=== PATIENT | male | born 1990 | race Caucasian/White ===

== ENCOUNTER 2017-02-09 19:10 | Inpatient (IN) | payer MEDICAID, OTHER ==
[2017-02-09] MEDS ORDERED: IBUPROFEN 600 MG TAB PO ONE ×2 (20:05→20:14)
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
[2017-02-09] MEDS ORDERED: NS 1,000 ML IV ONE (21:00)
[2017-02-09] MEDS ORDERED: HYDROmorphONE/DILAUDID 1 MG/ML SYR IVP ONE ×2 (21:00→21:49)
[2017-02-09] MEDS ORDERED: ONDANSETRON 4 MG/2 ML VIAL ONE (21:10)
[2017-02-09] MEDS ORDERED: HYDROCODONE/APAP 5/325 TAB PO PRN (21:16)
[2017-02-09 21:17] LABS: % IMMATURE GRANULYOCYTES 0.7 % (0.0-1.1); ABSOLUTE IMMATURE GRANULOCYTES 0.11 10^3/uL (0.00-0.10); ADD DIFF? NO; ADD MORPH? NO; ADD SCAN? NO; ATYPICAL LYMPHOCYTE FLAG 0 (0-99); FRAGMENT RBC FLAG 0 (0-99); HEMATOCRIT 43.3 % (40.0-51.0); HEMOGLOBIN 15.1 g/dL (13.7-17.5); LEFT SHIFT FLG 0 (0-99); LIPEMIA HEMOLYSIS FLAG 90 (0-99); MEAN CELL HEMOGLOBIN 30.8 pg (27.9-34.1); MEAN CELL HEMOGLOBIN CONCENTR. 34.9 g/dL (32.4-36.7); MEAN CELL VOLUME 88.4 fL (81.5-99.8); MEAN PLATELET VOLUME 11.3 fL (8.7-11.7); PLATELET CLUMPS FLAG 0 (0-99); PLATELET COUNT 152 10^3/uL (150-400); RED CELL DISTRIBUTION WIDTH 12.7 % (11.5-15.2)
[2017-02-09 21:29] LABS: APTT 27.5 SEC (23.0-38.0); INR 1.16 (0.83-1.16); PROTIME(PATIENT) 14.8 SEC (12.0-15.0)
[2017-02-09 21:36] LABS: ANION GAP 9 mEq/L (8-16); CALCIUM 9.9 mg/dL (8.5-10.4); CARBON DIOXIDE 24 mEq/l (22-31); CHLORIDE 104 mEq/L (97-110); CREATININE 0.9 mg/dL (0.7-1.3); ETHANOL SERUM < 10 mg/dL (0-10); GLOMERULAR FILTRATION RATE > 60; GLUCOSE 102 mg/dL (70-100); POTASSIUM 3.7 mEq/L (3.5-5.2); SODIUM 137 mEq/L (134-144)
[2017-02-09] MEDS ORDERED: NS 1,000 ML IV SCH (23:15)
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
[2017-02-10] MEDS: BACITRACIN ZINC 14.2 GM OINTTUBE TP SCH ×3 (00:40→21:04)
[2017-02-10] MEDS: ONDANSETRON 4 MG/2 ML VIAL IVP PRN ×2 (05:41→21:01)
[2017-02-10] MEDS: ACETAMINOPHEN 500 MG TAB PO SCH ×3 (05:41→20:51)
[2017-02-10 05:53] LABS: % IMMATURE GRANULYOCYTES 0.4 % (0.0-1.1); ABSOLUTE IMMATURE GRANULOCYTES 0.04 10^3/uL (0.00-0.10); ADD DIFF? NO; ADD MORPH? NO; ADD SCAN? NO; ATYPICAL LYMPHOCYTE FLAG 10 (0-99); FRAGMENT RBC FLAG 0 (0-99); HEMATOCRIT 39.8 % (40.0-51.0); HEMOGLOBIN 13.9 g/dL (13.7-17.5); LEFT SHIFT FLG 0 (0-99); LIPEMIA HEMOLYSIS FLAG 90 (0-99); MEAN CELL HEMOGLOBIN CONCENTR. 34.9 g/dL (32.4-36.7); MEAN CELL VOLUME 88.6 fL (81.5-99.8); MEAN PLATELET VOLUME 11.7 fL (8.7-11.7); PLATELET CLUMPS FLAG 20 (0-99); PLATELET COUNT 130 10^3/uL (150-400); RED BLOOD CELL COUNT 4.49 10^6/uL (4.40-6.38); RED CELL DISTRIBUTION WIDTH 12.8 % (11.5-15.2)
[2017-02-10 06:16] LABS: ANION GAP 9 mEq/L (8-16); CALCIUM 9.1 mg/dL (8.5-10.4); CARBON DIOXIDE 24 mEq/l (22-31); CHLORIDE 106 mEq/L (97-110); CREATININE 0.8 mg/dL (0.7-1.3); GLOMERULAR FILTRATION RATE > 60; GLUCOSE 101 mg/dL (70-100); POTASSIUM 4.2 mEq/L (3.5-5.2); SODIUM 139 mEq/L (134-144)
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
[2017-02-11] MEDS: ACETAMINOPHEN 500 MG TAB PO SCH (05:41)
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
[2017-02-11 08:26] VITALS: BP 124/79; PULSE 64; RESP 15; TEMP 98.3; O2SAT 94
[2017-02-11] MEDS: BACITRACIN ZINC 14.2 GM OINTTUBE TP SCH (08:47)
[2017-02-11] MEDS ORDERED: ONDANSETRON DISINTEGRATING 4 MG TAB PO PRN (10:25)
[2017-02-11] MEDS ORDERED: HYDROCODONE/APAP 5/325 TAB PO PRN (10:37)
== END 2017-02-11 12:20 | disposition home or self-care (01) | DRG 87 ==
LOC: F2N 23:45 → OBSVTOIN 02-10 16:00 → F3N 02-10 19:42
PROVIDERS: ADMIT Surgery; ATTEND Surgery
DX: S06.4X0A Epidural hemorrhage without loss of consciousness, initial encounter (principal); S02.0XXA Fracture of vault of skull, initial encounter for closed fracture; S30.810A Abrasion of lower back and pelvis, initial encounter; S80.211A Abrasion, right knee, initial encounter; R40.2412 Glasgow coma scale score 13-15, at arrival to emergency department; V00.131A Fall from skateboard, initial encounter; Y92.414 Local residential or business street as the place of occurrence of the external cause; Y99.8 Other external cause status
CPT/HCPCS: 92523-GN; 96374; 97161-GP; 97165-GO; 97535-GO; G0378; G0480; J1170; J2405

== ENCOUNTER 2017-12-21 14:15 | Emergency (ER) | payer SELFPAY ==
[2017-12-21 14:25] VITALS: BP 152/86
[2017-12-21] MEDS ORDERED: TDAP ADULT 0.5 ML INJ (BOOSTRIX) IM ONE (14:36)
--- NOTE | 2017-12-21 14:37 | EDPHY ---
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 No fractured object. No foreign body sensation. No glass or ceramic involvement.. No paresthesia. Remains tender. No flexor or extensor deficits. No lymphangitic streaking. PHYSICAL EXAM (Prior to examination, patient consented to physical exam, hands were washed and my usual and customary physical exam procedures followed) 1) GENERAL: Well-developed, well-nourished, alert and oriented. Appears to be in no acute distress. 2) HEAD: Normocephalic 3) HEENT: sclera anicteric 4) LUNGS: Breathing comfortably. 5) SKIN: Right index finger radial aspect at the DIP joint 1 cm laceration which is epithelializing. No signs of infection or cellulitis. Negative kanavel sign. 6) MUSCULOSKELETAL: Extensor function at the MCP PIP DIP intact. FDS FDP function intact. 7) NEUROLOGIC: Full sensation two-point discrimination intact distal to the wound. Smoking Status: Never smoked Constitutional: Initial Vital Signs Temperature (C) 37.2 C 12/21/17 14:21 Heart Rate 76 12/21/17 14:21 Respiratory Rate 16 12/21/17 14:21 Blood Pressure 152/86 H 12/21/17 14:21 O2 Sat (%) 97 12/21/17 14:21 O2 Delivery Mode Room Air Allergies/Adverse Reactions: No Known Allergies Allergy (Verified 02/09/17 19:24) Home Medications: Medication Instructions Recorded Amphet Asp and D/Amphet [Adderall 10 mg PO BID 02/09/17 10 MG (*)] Acetaminophen [Tylenol ES 500 mg 1,000 mg PO Q8 #0 tab 02/11/17 (*)] Hydrocodone/APAP 5/325 [[place] 1 tab PO Q4HRS PRN #40 tab 02/11/17 5/325 (*)] Ondansetron Odt [Zofran Odt 4 mg 4 mg PO Q4HRS PRN #20 tab 02/11/17 (*)] MDM/Departure - MDM Procedures: Procedure: Digital nerve block Indication: Anesthetic prior to wound cleaning 0.5% plain bupivacaine digital nerve block administered by myself using my usual and customary technique so that the patient's wound could be adequately cleansed and dressed. Patient tolerated procedure well ED Course/Re-evaluation: This wound is approximately 36 hr old and is already epithelializing. Will be allowed to heal via secondary intention. No sutures. Finger was anesthetized so as to provide comfort during wound cleaning and dressing. Wound is not infected. Negative kanavel sign. Usual and customary wound precautions and instructions provided. Care of patient under supervision of primary supervising physician Dr Choudhury. - Depart Disposition: Home, Routine, Self-Care Clinical Impression: Right index finger laceration Condition: Good Instructions: Laceration (ED) Additional Instructions: Return to the ER if you develop redness, swelling, discharge, warmth to the wound, red streaks going up your arm, or any other symptoms that concern you. Referrals: [facility],. [Clinic] - 2-3 days, call for appt.
== END 2017-12-21 15:08 | disposition home or self-care (01) ==
DX: S61.210A Laceration without foreign body of right index finger without damage to nail, initial encounter (principal); Z23 Encounter for immunization; W27.0XXA Contact with workbench tool, initial encounter; Y92.69 Other specified industrial and construction area as the place of occurrence of the external cause; Y99.0 Civilian activity done for income or pay; Y93.H3 Activity, building and construction